=== PATIENT | female | born 1940 | race Caucasian/White ===

== ENCOUNTER 2020-10-06 11:00 | Outpatient (RCR) | payer MEDICARE, SELFPAY | END 2021-02-02 15:50 | disposition home or self-care (01) | LOC: ANHCPREHAB 11:00 | PROVIDERS: Visit Provider Internal Medicine Pulmonary Disease | DX: J44.9 Chronic obstructive pulmonary disease, unspecified (principal) | CPT/HCPCS: 97150; G0424 ==

== ENCOUNTER 2021-02-02 13:30 | Outpatient (RCR) | payer MEDICARE, SELFPAY ==
--- NOTE | 2020-10-05 16:37 | WPDSIXMINUTE ---
Six Minute Walk Procedure Procedure Performed Pulmonary Stress Test (6 min walk) Six Minute Walk This is a 6 minutes walk test. The test was performed and interpreted in accordance with the 2014 ERS/ATS task force guidelines. Findings: The patient's resting room air oxygen saturation measured by pulse oximetry was 95% and her heart rate was 63 bpm. Patient ambulated for 183 meters and oxygen saturation remained 87% to 95%. Heart rate at the end of the study was 103 bpm. The patient did qualify for supplemental oxygen with ambulation and should be formally assessed for home oxygen. There are no prior studies for comparison.
[2020-10-06 12:06] VITALS: PULSE 53
[2020-10-06 12:10] VITALS: BP 152/80; PULSE 53; RESP 20; O2SAT 95
--- NOTE | 2020-12-22 11:08 | PCCPR ---
Absent due to illness Xiao called states she has and upper respiratory infection She is currently on a Zpack and was feeling poorly expectorating green tinged sputum until after a couple of days of antibiotics. She is still having a productive cough mostly yellow to white sputum now. She was tested for COVID 19 and was negative. States she is feeling some better but easily goes into a coughing attack . Plans to be out the rest of the week for now.
== END 2021-02-02 15:49 | disposition home or self-care (01) ==
LOC: ANHCPREHAB 13:30
PROVIDERS: Visit Provider Internal Medicine Pulmonary Disease
DX: J44.9 Chronic obstructive pulmonary disease, unspecified (principal)
CPT/HCPCS: 94618; 97150; G0424